=== PATIENT | male | born 1940 | race Caucasian/White ===

== ENCOUNTER → 2017-08-13 | Outpatient (CLI) | payer MEDICARE ==
[~2017-08-13] MED LIST: AMLO-96 PO; LOSA-54 PO; LOSA100T67 PO; PANT40TA65 PO; PRED20TA6 PO
== END ==
LOC: LAB 14:49
PROVIDERS: ATTEND Nurse Practitioner Family
DX: R97.20 Elevated prostate specific antigen [PSA] (principal)
CPT/HCPCS: 36415; 84153

== ENCOUNTER → 2018-01-08 | Outpatient (CLI) | payer MEDICARE ==
[~2018-01-08] MED LIST changes: +TAMS0.4C25 PO
== END ==
LOC: LAB 10:53
PROVIDERS: ATTEND Nurse Practitioner Family
DX: M10.9 Gout, unspecified (principal)
CPT/HCPCS: 36415; 82310; 82374; 82435; 82565; 82947; 84132; 84295; 84520; 84550

== ENCOUNTER → 2018-01-26 | Outpatient (REF) | payer MEDICARE | LOC: ZZSENDIN 12:00 | PROVIDERS: ATTEND Urology | DX: R97.20 Elevated prostate specific antigen [PSA] (principal) | CPT/HCPCS: 88305; 88344 ==

== ENCOUNTER → 2018-03-02 | Outpatient (CLI) | payer MEDICARE ==
[~2018-03-02] MED LIST changes: +ALLO100T70 PO; +AMLO-99 PO
== END ==
LOC: LAB 15:48
PROVIDERS: ATTEND Nurse Practitioner Family
DX: M10.9 Gout, unspecified (principal)
CPT/HCPCS: 36415; 82310; 82374; 82435; 82565; 82947; 84132; 84295; 84520; 84550

== ENCOUNTER → 2018-10-08 | Outpatient (CLI) | payer MEDICARE ==
[~2018-10-08] MED LIST changes: +AMLO-125 PO; +AMLO-127 PO; -AMLO-96 PO; -AMLO-99 PO; -LOSA100T67 PO; +LOSA100T75 PO
[2018-10-08 14:50] LABS: PLATELET COUNT, AUTOMATED 250 K/uL (150-450)
[2018-10-08 15:01] LABS: LDL CHOLESTEROL 89 mg/dl
== END ==
LOC: LAB 14:20
PROVIDERS: ATTEND Internal Medicine
DX: N40.0 Benign prostatic hyperplasia without lower urinary tract symptoms (principal); I10 Essential (primary) hypertension; M10.9 Gout, unspecified; R73.9 Hyperglycemia, unspecified; E78.5 Hyperlipidemia, unspecified; N52.9 Male erectile dysfunction, unspecified
CPT/HCPCS: 36415; 81001; 83036; 84443; 84550; 85025; G0103; 82040; 82247; 82310; 82374; 82435; 82465; 82565; 82728; 82947; 83540; 83550; 83718; 84075; 84132; 84153; 84155; 84295; 84450; 84460; 84478; 84520

== ENCOUNTER → 2018-10-15 | Outpatient (CLI) | payer MEDICARE ==
[~2018-10-15] MED LIST changes: +SILD20TA PO
== END ==
LOC: LAB 15:14
PROVIDERS: ATTEND Urology
DX: N40.0 Benign prostatic hyperplasia without lower urinary tract symptoms (principal)
CPT/HCPCS: 36415; 84154; G0103; 84153

== ENCOUNTER → 2018-11-09 | Outpatient (CLI) | payer MEDICARE ==
[~2018-11-09] MED LIST changes: +ATOR10TA65 PO
== END ==
LOC: RESP 01:30
PROVIDERS: ATTEND Internal Medicine
DX: R06.09 Other forms of dyspnea (principal); I10 Essential (primary) hypertension; I25.10 Atherosclerotic heart disease of native coronary artery without angina pectoris
CPT/HCPCS: 94060; 94726; 94729; G0398

== ENCOUNTER → 2018-11-16 | Outpatient (CLI) | payer MEDICARE ==
[~2018-11-16] MED LIST changes: +REGADENOSON 0.4 MG/5 ML SYR ONE
--- NOTE | 2018-11-16 14:46 | RT STRESS TEST REPORT ---
FACILITY: [facility] PATIENT NAME: EAMON BRAGG : [id number] MR: [id number] V: [id number] EXAM DATE: ORDERING PHYSICIAN: MARGARITO KELLER TECHNOLOGIST: Hubert Acquisition Time: 2018-11-16 14:38:38 Total Exercise Time: 00:01:00 Test Indications: Dyspnea Medications: SEE NUC MED LIST Protocol: LEXISCAN Max HR: 080 BPM 55% of Pred: 143 BPM Max BP: 155/084 mmHG Max Work Load: 1.0 METS Stress was performed using Lexiscan Protocol. He reported some dyspnea with infusion. This resolved q uickly in recovery. EKGs show some nonspecific ST-T findings at rest and these remained essentially unchanged with the infusion. No dysrhythmias wer e recorded. Await Myoview images. Confirmed by LONI HACKETT ([id number]) on 11/16/2018 2:45:32 PM Referred By: Overread By: LONI HACKETT
--- NOTE | 2018-11-16 15:50 | RADIOLOGY IMAGING REPORT ---
FACILITY: [facility] PATIENT NAME: Keenan Winkler : 1940 MR: [id number] V: [id number] EXAM DATE: ORDERING PHYSICIAN: MARGARITO KELLER TECHNOLOGIST: Location: [facility] - [place] Patient: Keenan Winkler : 1940 Visit/Account:[id number] Date of Sevice: 11/16/2018 EXAMINATION: Single isotope SPECT imaging with Regadenoson infusion and gated SPECT imaging. DATE OF EXAMINATION: November 16, 2018. DATE OF INTERPRETATION: November 16, 2018. REQUESTING PHYSICIAN: MARGARITO KELLER. INDICATION: The patient is a 78-year-old male evaluated for CAD. PROCEDURE: After informed consent the patient received an intravenous injection of 12.5 mCi of Tc-99 m sestamibi followed at an appropriate time interval by rest imaging. The patient then subsequently received an intravenous infusion of 0.4 mg of Regadenoson per protocol without complication. Resting heart rate was 65 bpm with a peak heart rate of 80 bpm. Blood pressure at rest was 142 / 77 and fol lowing infusion was 155 / 84. Baseline EKG demonstrates normal sinus rhythm. There were no diagnost ic EKG changes of ischemia following infusion. Symptoms were nonspecific. The patient then received an intravenous injection of 30.6 mCi of Tc-99m sestamibi followed by stress imaging. RAW DATA: Examination of the summed raw data revealed a good quality study. MYOCARDIAL PERFUSION: The tomographic images demonstrate normal perfusion both at rest and at stress . GATED IMAGES: The gated images demonstrate a normal ejection fraction estimated at greater than 70% with normal wall motion. IMPRESSION: 1. Baseline EKG is normal without significant changes during stress 2. Normal myocardial perfusion scan. 3. Normal LV systolic function; LVEF greater than 70%. 4. Based on the results of this exam, the patient appears to be at low risk for future cardiovascular events. Report Dictated By: Tarun Calderon MD at 11/16/2018 3:42 PM Report E-Signed By: Tarun Calderon MD at 11/16/2018 3:46 PM WSN:[id number]
== END ==
LOC: NUC 00:58
PROVIDERS: ATTEND Internal Medicine
DX: I25.10 Atherosclerotic heart disease of native coronary artery without angina pectoris (principal); I10 Essential (primary) hypertension; R06.09 Other forms of dyspnea; E78.2 Mixed hyperlipidemia
CPT/HCPCS: 78452; 93017; 93306; A9500; J2785

== ENCOUNTER 2019-01-31 10:25 | Emergency (ER) | payer MEDICARE ==
[~2019-01-31 10:25] MED LIST changes: +MIRT-22 PO; +MIRT15TA11 PO; -REGADENOSON 0.4 MG/5 ML SYR ONE; +TRAZ50TA52 PO
--- NOTE | 2019-01-31 10:28 | ER Report ---
History and Physical Time Seen By MD: 10:24 HPI/ROS CHIEF COMPLAINT: Neck pain HISTORY OF PRESENT ILLNESS: Patient is a 78-year-old male here with complaints of bilateral paraspinal musculature pain since Thursday. Patient reports that he has been having suboccipital musculature tenderness, denies new paresthesias or motor weakness. Patient does have ropey musculature in the paraspinal musculature on examination. Denies trauma. Patient is hemodynamically stable. REVIEW OF SYSTEMS: Constitutional: No fever, no chills. Eyes: No discharge. Musculoskeletal: No back pain. + paraspinal muscle tenderness especially in the left suboccipital distribution with ropey texture, no midline tenderness Skin: No rashes. Neurological: No headache. No motor weakness, sensation intact in the distal upper extremities Allergies: Coded Allergies: No Known Drug Allergies (Unverified , 01/31/19) Home Meds Active Scripts Tramadol Hcl (TRAMADOL HCL) 50 Mg Tablet, 50 MG PO Q6H PRN for PAIN, #12 TAB 0 Refills Prov:BORIS HOFFMAN DO 01/31/19 Cyclobenzaprine Hcl (CYCLOBENZAPRINE HCL) 10 Mg Tablet, 10 MG PO Q8H PRN for MUSCLE SPASMS, #20 TAB 0 Refills Prov:BORIS HOFFMAN DO 01/31/19 Amlodipine Besylate (AMLODIPINE BESYLATE) 10 Mg Tablet, 1 TAB PO QDAY, #90 TAB 4 Refills Prov:MARGARITO KELLER MD 12/21/18 Allopurinol (ALLOPURINOL) 100 Mg Tablet, 1 TAB PO QDAY, #90 TAB 4 Refills Prov:MARGARITO KELLER MD 12/21/18 Losartan Potassium (LOSARTAN POTASSIUM) 100 Mg Tablet, 1 TAB PO QDAY, #90 TAB 3 Refills Prov:MARGARITO KELLER MD 12/01/18 Sildenafil Citrate (SILDENAFIL) 20 Mg Tablet, 20 MG PO PRN for 10 Days, #10 CAP 1 Refill Take 2 or 3 tablets by mouth as needed Prov:CONSTANZA GENAO MD 10/15/18 Tamsulosin Hcl (FLOMAX) 0.4 Mg Cap.er.24h, 1 CAP PO DAILY, #90 CAP 1 Refill Prov:SANJU MAURO APRN [employer] 03/03/18 Discontinued Scripts Mirtazapine (MIRTAZAPINE) 15 Mg Tablet, 15 MG PO QHS PRN for diff sleeping, #30 TAB 3 Refills Prov:MARGARITO KELLER MD 01/21/19 Atorvastatin Calcium (ATORVASTATIN CALCIUM) 10 Mg Tablet, 1 TAB PO QDAY, #30 TAB 3 Refills Prov:MARGARITO KELLER MD 11/02/18 Hx Smoking: Yes (20-25 YEARS, 2PPD) Smoking Status: Former Smoker Hx Alcohol Use: No Constitutional Vital Sign - Last 24 Hours 01/31/19 10:32 Temp 97.7 Pulse 86 Resp 12 B/P (MAP) 185/105 Pulse Ox 95 O2 Delivery Room Air Physical Exam General Appearance: The patient is alert, has no immediate need for airway protection and no signs of toxicity. No acute distress Eyes: Pupils equal and round no pallor or injection. Neurological: No focal neurological deficits, cranial nerves intact Skin: Warm and dry, no rashes. Musculoskeletal: Neck is supple and tender in the paraspinal musculature with ropey texture, point of maximum tenderness in the left suboccipital musculature. Extremities are nontender, nonswollen and have full range of motion. DIFFERENTIAL DIAGNOSIS: After history and physical exam differential diagnosis was considered for muscle spasm, trigger point, cervical nerve impingement Medical Decision Making ED Course/Re-evaluation ED Course Patient is a 78-year-old male here with complaints of bilateral suboccipital and paraspinal musculature tenderness, point of maximum tenderness was identified in the left suboccipital musculature. Patient was injected at the point of maximum tenderness with 1 mL of 1% lidocaine, 1 mL of methylprednisolone 40 mg. Patient was given 60 mg of Toradol, prednisone 60 mg. Prescription provided for Flexeril. PCP follow-up recommended. Return precautions were provided. Procedure Trigger point injection: Point of maximum tenderness was identified in the left suboccipital musculature. 1 mL of 1% lidocaine mixed with 40 mg of methylprednisolone were injected into the point of maximum tenderness. Patient tolerated procedure well. Decision to Disposition Date: Jan 31, 2019 Decision to Disposition Time: 11:16 Depart Departure Latest Vital Signs Vital Signs Date Time Temp Pulse Resp B/P (MAP) Pulse Ox O2 Delivery O2 Flow Rate FiO2 01/31/19 10:32 97.7 86 12 185/105 95 Room Air Impression: Primary Impression: Muscle spasm Condition: Improved Disposition: HOME OR SELF-CARE Referrals: MARGARITO KELLER MD (PCP) New Scripts Tramadol Hcl (TRAMADOL HCL) 50 Mg Tablet 50 MG PO Q6H PRN for PAIN, #12 TAB 0 Refills Prov: BORIS HOFFMAN DO 01/31/19 Cyclobenzaprine Hcl (CYCLOBENZAPRINE HCL) 10 Mg Tablet 10 MG PO Q8H PRN for MUSCLE SPASMS, #20 TAB 0 Refills Prov: BORIS HOFFMAN DO 01/31/19 Patient Instructions: Muscle Spasm (ED) Additional Instructions: Please take ibuprofen or naproxen as needed for pain control. You may take 1 tramadol every 6-8 hours as needed for breakthrough pain control. You may take Flexeril one tablet every 6-8 hours as needed for muscle spasm. Please return promptly if you develop worsening pain, fevers, rashes, motor weakness or numbness in the upper extremities. Please follow-up with her primary care provider in the next week for reevaluation. BORIS HOFFMAN DO Jan 31, 2019 10:28
[2019-01-31 10:32] VITALS: BP 185/105
[2019-01-31] MEDS ORDERED: KETOROLAC 60 MG/2 ML VIAL IM ONE (10:55)
[2019-01-31] MEDS ORDERED: predniSONE 20 MG TAB PO ONE (10:55)
[2019-01-31] MEDS ORDERED: methylPREDNIS ACE 40MG/ML VIAL IM ONLY ONE ×2 (10:55→11:05)
[2019-01-31] MEDS ORDERED: CYCL10TA29 PO (11:21)
[2019-01-31] MEDS ORDERED: TRAM-420 PO (11:23)
== END 2019-01-31 11:32 | disposition home or self-care (01) ==
LOC: ER 10:30
DX: M62.838 Other muscle spasm (principal)
CPT/HCPCS: 20552; 96372; 99284; J1030; J1885; J7512